=== PATIENT | female | born 1970 | race Caucasian/White ===

== ENCOUNTER 2022-12-20 21:28 | Emergency (ER) | payer OTHER, SELFPAY ==
[2022-12-20 21:35] VITALS: BP 138/104; PULSE 112; RESP 18; TEMP 36.1; O2SAT 97
--- NOTE | 2022-12-20 21:49 | ED_ITS ---
HPI - General Adult General Date Seen: 12/20/22 Chief complaint: Ear/Nose/Throat Problem Stated complaint: feels like something is stuck in throat Time Seen by Provider: 12/20/22 21:38 Source: patient Mode of arrival: ambulatory Limitations: no limitations History of Present Illness HPI narrative: Patient is a 52-year-old who presents with inability to swallow liquids after eating some chicken earlier. She was seen here couple of months ago with esophageal food impaction recommended to have endoscopy. She says she did not follow up because she felt fine. No vomiting today, just unable to swallow liquids and feels that food has become lodged. Last time she responded to EZ gas I would like to try that today. Her daughter is currently in labor at [facility] and she does not want to miss the of her 1st grandchild. Related Data Home Medications Medication Instructions Recorded Confirmed No Known Home Medications 10/18/22 10/18/22 Allergies Allergy/AdvReac Type Severity Reaction Status Date / Time ethinyl estradiol Allergy Mild Verified 10/18/22 17:19 [From Seasonale (91)] levonorgestrel Allergy Mild Verified 10/18/22 17:19 [From Seasonale (91)] Review of Systems Status of ROS: Reports: 6 or more systems reviewed and unremarkable except as noted in History and below [facility] Social History Smoking Status: Never smoker How often do you have a drink containing alcohol: never AUDIT-C Alcohol total score: 0 Non-prescribed substance use: denies use Exam Narrative: Exam Narrative: Vital signs as noted above. In general, an alert, well-appearing patient. Breathing easily. Head: Normocephalic, atraumatic. Eyes: Pupils are equal reactive. Extraocular movements are full. Conjunctivae are normal. ENT: Mucous membranes are moist. Throat is normal. Neck: Supple without lymphadenopathy. Heart: Regular rate and rhythm. No murmur or rub. Lungs: Clear bilaterally. No increased work of breathing, crackles or wheezes. Abdomen: Soft and nontender. No organomegaly. Extremities: Well perfused. No edema. No calf tenderness. Pulses intact. Neurologic: Patient is alert and oriented to person and place. Speech is fluent. Face is symmetric. Moves all extremities equally. Affect: Normal. Skin: Warm and dry. Well perfused. Const: Vital Signs, click to edit/add: Vital Signs - 24 hr 12/20/22 21:35 Temperature 97.0 F L Pulse Rate [Left P ulse Oximeter] 112 H Respiratory Rate 18 Blood Pressure [Ri ght Upper Arm] 138/104 H Pulse Oximetry 97 Oxygen Delivery Me thod Room Air Documenting provider has reviewed patient's vital signs: yes Course Course Hospital Course: Will go ahead and try pop rocks and glucagon and see if we make any headway. She had resolution of her food impaction with pop rocks, she is feeling back to normal and is able to drink without difficulty. Stressed the importance of follow-up for endoscopy at this point. Recommend Prilosec, soft foods, return as needed. Vital Signs Vital signs: Initial Vital Signs Temperature 97.0 F L 12/20/22 21:35 Temperature Source Temporal Artery Scan 12/20/22 21:35 Pulse Rate 112 H 12/20/22 21:35 Pulse Rhythm Regular 12/20/22 21:35 Respiratory Rate 18 12/20/22 21:35 Blood Pressure 138/104 H 12/20/22 21:35 Blood Pressure Mean 115 H 12/20/22 21:35 Blood Pressure Position Sitting 12/20/22 21:35 Pulse Oximetry 97 12/20/22 21:35 Oxygen Delivery Method Room Air 12/20/22 21:35 Vital Signs Temperature 97.0 F L 12/20/22 21:35 Pulse Rate 112 H 12/20/22 21:35 Respiratory Rate 18 12/20/22 21:35 Blood Pressure 138/104 H 12/20/22 21:35 Pulse Oximetry 97 12/20/22 21:35 Oxygen Delivery Method Room Air 12/20/22 21:35 Temperature 97.0 F L 12/20/22 21:35 Pulse Rate 112 H 12/20/22 21:35 Respiratory Rate 18 12/20/22 21:35 Blood Pressure 138/104 H 12/20/22 21:35 Pulse Oximetry 97 12/20/22 21:35 Oxygen Delivery Method Room Air 12/20/22 21:35 Discharge Plan Discharge Clinical Impression: Food impaction of esophagus Patient Disposition: Home, Self-Care Condition: Improved Instructions: Food Impaction (ED) Additional Instructions: For now I would recommend sticking with softer foods, avoid bulk ear foods that may get stuck, and make sure to chew your food very well. You need to be seen in follow-up for endoscopy. Talk with antonio Kirkland to see if you can get in with GI there, you can also follow-up with our surgery clinic, . Recommend an atny-neh-jobkkcy proton pump inhibitor like Prilosec. Prescriptions: No Action No Known Home Medications Follow Up/Referrals: Provider,Not a Local [Primary Care Provider] - Stand Alone Forms: [employer] Info Instructions
[2022-12-20] MEDS: SIMETHICONE/SOD BICARB/CIT AC 1 EACH GRAN.EF.PK PO (22:04)
--- NOTE | 2022-12-20 22:06 | ED.NURSE ---
patient passed chicken. Patient able to drink water without difficulty
== END 2022-12-20 22:39 | disposition home or self-care (01) ==
PROVIDERS: Emergency Provider Emergency Medicine
DX: T18.128A Food in esophagus causing other injury, initial encounter (principal)
CPT/HCPCS: 96374; 99283; 99284

== ENCOUNTER 2023-10-20 09:04 | Emergency (ER) | payer OTHER, SELFPAY ==
[2023-10-20 09:10] VITALS: BP 141/117; RESP 18; TEMP 36.4; O2SAT 96; BMI 30.7
--- NOTE | 2023-10-20 09:38 | ED_ITS ---
HPI - General Adult General Chief complaint: Skin/Abscess/Foreign Body Stated complaint: R arm tickbite or ringworm Time Seen by Provider: 10/20/23 09:14 Source: patient Mode of arrival: ambulatory Limitations: no limitations History of Present Illness HPI narrative: 52-year-old female coming in today concerned about a rash on her arm. Patient states that she spends a lot of time outside by tall grass and she is concerned that it is a tick bite. Patient did not see a tick in the area. She denies any systemic symptoms or other rashes. Rash has been present for couple days. Related Data Home Medications ?Medication ?Instructions ?Recorded ?Confirmed No Known Home Medications 10/18/22 10/18/22 Allergies Allergy/AdvReac Type Severity Reaction Status Date / Time ethinyl estradiol Allergy Mild Verified 10/18/22 17:19 [From Seasonale (91)] levonorgestrel Allergy Mild Verified 10/18/22 17:19 [From Seasonale (91)] Penicillins Allergy Verified 10/20/23 09:10 Review of Systems Status of ROS: Reports: 6 or more systems reviewed and unremarkable except as noted in History and below [facility] Medical History Esophageal obstruction ?K22.2 - Esophageal obstruction (ICD-10) Social History Smoking Status: Never smoker How often do you have a drink containing alcohol: never How often do you have six or more drinks on one occasion: Never AUDIT-C Alcohol total score: 0 Non-prescribed substance use: denies use service: No Exam Narrative: Exam Narrative: Well-nourished well-developed patient in no acute distress. Alert and oriented. Answers questions appropriately. Mood and affect are appropriate. Thoughts are goal oriented and rational. No tangential or magical thinking noted. Patient speaks in full sentences without needing to catch her breath. HEENT: Normocephalic atraumatic. Pupils are equally round reactive to light. Extraocular muscles are intact. Conjunctivae are moist without any icterus noted. Moist mucous membranes. Skin: On the right upper medial arm patient has a small rash about 1 cm in diameter. In the center of the rash it appears to be tiny blisters with clear fluid. There is no surrounding erythema, no target lesion noted, no evidence of cellulitis. Const: Vital Signs, click to edit/add: Vital Signs - 24 hr 10/20/23 09:10 Temperature 97.5 F L Respiratory Rate 18 Blood Pressure [Le ft Upper Arm] 141/117 H Pulse Oximetry 96 Oxygen Delivery Me thod Room Air Course Vital Signs Vital signs: Initial Vital Signs Temperature 97.5 F L 10/20/23 09:10 Temperature Source Temporal Artery Scan 10/20/23 09:10 Pulse Rhythm Regular 10/20/23 09:10 Respiratory Rate 18 10/20/23 09:10 Blood Pressure 141/117 H 10/20/23 09:10 Blood Pressure Mean 125 H 10/20/23 09:10 Blood Pressure Position Sitting 10/20/23 09:10 Pulse Oximetry 96 10/20/23 09:10 Oxygen Delivery Method Room Air 10/20/23 09:10 Vital Signs Temperature 97.5 F L 10/20/23 09:10 Respiratory Rate 18 10/20/23 09:10 Blood Pressure 141/117 H 10/20/23 09:10 Pulse Oximetry 96 10/20/23 09:10 Oxygen Delivery Method Room Air 10/20/23 09:10 Temperature 97.5 F L 10/20/23 09:10 Respiratory Rate 18 10/20/23 09:10 Blood Pressure 141/117 H 10/20/23 09:10 Pulse Oximetry 96 10/20/23 09:10 Oxygen Delivery Method Room Air 10/20/23 09:10 Medical Decision Making MDM Narrative Medical decision making narrative: 52-year-old female with a rash on the upper arm consistent with either a bug bite or another skin irritant. Does not appear to be consistent with a tick bite in the story does not confirm the presence of a tick. At this point I recommend no treatment aside from watchful waiting- do believe this will heal without complication. We discussed signs symptoms of infection reasons for follow-up. Discharge Plan Discharge Clinical Impression: Rash Patient Disposition: Home, Self-Care Condition: Stable Additional Instructions: The rash in your arm does not appear to be a tick bite. Likely, the skin irri tation either due to another bug bite or another irritant. Do not be concerned about it unless it becomes more red and the redness starts to spread up and down the arm. If this occurs follow-up with your doctor right away or return to the ER. Prescriptions: No Action No Known Home Medications Follow Up/Referrals: Provider,Not a Local [Primary Care Provider] - Stand Alone Forms: [employer] Info Instructions
== END 2023-10-20 09:50 | disposition home or self-care (01) ==
PROVIDERS: Emergency Provider Family Medicine
DX: R21 Rash and other nonspecific skin eruption (principal)
CPT/HCPCS: 99282; 99283

== ENCOUNTER 2024-12-25 09:15 | Emergency (ER) | payer OTHER, SELFPAY ==
--- OUTSIDE RECORDS SUMMARY | 2024-12-25 09:17 | XMS_ITS | Clinical Summary ---
Author Organization [facility] Address [facility] [place] [address] Care Team Providers Care Table Filler Name Role Phone Baron, Michaela Payne Primary Care Provider Allergies Active Allergy Reactions Criticality Noted Date Comments Penicillins 11/30/2013 Medications ketorolac (ACULAR) 0.5 % ophthalmic solution Place 1 drop Into the left eye 4 times daily To affected eye 5 mL 0 4 Active Additional Information Patient not taking.Reported on 01/07/2021 ofloxacin (OCUFLOX) 0.3 % ophthalmic solution Apply 1 drop to eye every 4 hours 1 Bottle 0 4 Active Additional Information Patient not taking.Reported on 01/07/2021 PREVIDENT 5000 BOOSTER PLUS 1.1 % PSTE USE THIS TOOTHPASTE IN PLACE OF YOUR REGULAR TOOTHPASTE BEFORE BEDTIME. BRUSH NORMALLY, THEN SWISH WITH THE REMAINING FOAM FOR AT LEAST 30 SECONDS. 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 Gender Identity Not on file Sexual Orientation Not on file Last Filed Vital Signs Vital Sign Reading Time Taken Comments Blood Pressure 128/90 09/03/2021 12:50 PM CDT Pulse 119 09/03/2021 12:50 PM CDT Temperature 37 C (98.6 F) 09/03/2021 12:50 PM CDT Respiratory Rate 16 09/03/2021 12:50 PM CDT Oxygen Saturation 95% 09/03/2021 12:50 PM CDT Inhaled Oxygen Concentration - - Weight 90.7 kg (200 lb) 11/30/2013 2:13 AM CDT Height 180.3 cm (5' 11) 11/30/2013 2:13 AM CDT Body Mass Index 27.89 11/30/2013 2:13 AM CDT Plan of Treatment Not on file Care Teams Table Filler Relationship Specialty Start Date End Date Clinic, Michaela Payne [address] [place], [place] [address] [id number] PCP - General 11/30/13
--- OUTSIDE RECORDS SUMMARY | 2024-12-25 09:17 | XMS_ITS | Clinical Summary ---
[facility] Address [address] [place] [address] Care Team Providers Care Fur Pointer Name Role Phone Unassigned, Provider Primary Care Provider Unava ilable Source Comments You are receiving this document as you are listed as the primary care provider,follow-up provider, or the patient has been referred to you for consultation.This is in compliance with the Medicare and[facility] EHR Incentive Program,which states Providers who transition their patient to another setting of careor provider of care or refers their patient to another provider of care shouldprovide summary care record for each transition of care or referral. [employer] Allergies Active Allergy Reactions Criticality Noted Date Comments Amoxicillin Hives High 07/17/2011 Penicillins Hives High 01/08/2018 Medications ibuprofen (MOTRIN) 600 MG tablet Take 600 mg by mouth every 6 hours as needed for Pain. Active Active Problems No known active problems Family History Medical History Relation Name Comments Diabetes Daughter Rheumatologic Disease Son Relation Name Status Comments Daughter Son Social History Tobacco Use Types Packs/Day Years Used Date Smoking Tobacco: Never Smokeless Tobacco: Never Comments Unknown Sex and Gender Information Value Date Recorded Sex Assigned at Not on file Legal Sex Female 4:47 AM CDT Gender Identity Not on file Sexual Orientation Not on file Last Filed Vital Signs Vital Sign Reading Time Taken Comments Blood Pressure 119/90 01/05/2018 3:06 AM CDT Pulse 107 01/05/2018 3:06 AM CDT Temperature 36.2 C (97.2 F) 03/25/2021 9:03 AM CDT Respiratory Rate 16 01/05/2018 3:06 AM CDT Oxygen Saturation 97% 01/05/2018 3:06 AM CDT Inhaled Oxygen Concentration - - Weight - - Height 180.3 cm (5' 11) 09/06/2020 1:23 PM CDT Body Mass Index - - Plan of Treatment Health Maintenance Due Date Last Done Comments Cervical Cancer Screening Due 1970 Colon Cancer Screening Plan Due 1970 Hep C Screening (Preventive Services) 1970 Mammogram 1970 HIV Screening (Preventive Services) 1986 Adult Preventive Visit 1988 HepB Vaccine (1) 1989 Cholesterol 12/13/2015 DTaP/Tdap/Td Vaccine (2 - Tdap) 07/12/2018 07/12/2008, 06/01/1998 Pneumococcal Vaccine 50+ Yrs (1 of 1 - PCV) 2020 Zoster/Shingles Vaccine (1 o f 2) 2020 COVID-19 Vaccine (1 - 2023-2 5 season) 2024 Influenza Vaccine (#1) 2025 04/11/2018 HepA Vaccine Aged Out 06/01/1998 No longer eligi ble based on patient's age to complete this topic Hib Vaccine Aged Out No longer eligi ble based on patient's age to complete this topic IPV (Polio) Vaccine Aged Out No longe r eligible based on patient's age to complete this topic MCV4 Vaccine Aged Out No longer eligi ble based on patient's age to complete this topic Meningococcal B Vaccine Aged Out No l onger eligible based on patient's age to complete this topic Care Teams Fur Pointer Relationship Specialty Start Date End Date Unassigned, Provider [address] [place] [id number] PCP - General 02/28/00
--- OUTSIDE RECORDS SUMMARY | 2024-12-25 09:17 | XMS_ITS | Clinical Summary ---
Author Organization [facility] Address [address] [place] [id number] Care Team Providers Care Front Line Leader Name Role Phone Shaylee Lemon MD Primary Care Provide r Unavailable Allergies Active Allergy Reactions Criticality Noted Date Comments Amoxicillin Hives 07/17/2011 Penicillins Hives 07/17/2011 Medications No known medications Active Problems No known active problems Immunizations Immunization Administration Dates Next Due Tdap 07/12/2008 Social History Tobacco Use Types Packs/Day Years Used Date Smoking Tobacco: Never Smokeless Tobacco: Never Alcohol Use Standard Drinks/Week Comments Yes 0 (1 standard drink = 0.6 oz pur e alcohol) Comments No Sex and Gender Information Value Date Recorded Sex Assigned at Not on file 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 Gender Identity Not on file Sexual Orientation Not on file Obstetrics History Last Filed Vital Signs Vital Sign Reading Time Taken Comments Blood Pressure 123/86 11/29/2013 10:26 AM CDT Pulse 106 11/29/2013 10:26 AM CDT Temperature 37.2 C (98.9 F) 11/29/2013 10:26 AM CDT Respiratory Rate 16 11/29/2013 10:2 6 AM CDT Oxygen Saturation 97% 11/29/2013 10: 26 AM CDT RA Inhaled Oxygen Concentration - - Weight 111.8 kg (246 lb 6.4 oz) 014 10:26 AM CDT Height 181 cm (5' 11.26) 11/29/2013 10 :26 AM CDT Body Mass Index 34.12 11/29/2013 10:26 AM CDT Plan of Treatment Health Maintenance Due Date Last Done Comments Depression screening for age 12+ 1982 HIV for age 15-65 1985 BMI (ht and wt on same day) for age 18+ 1988 Hepatitis C screening for age 18-79 1988 Hepatitis B series for 19+ ( 1 of 3 - 19+ 3-dose series) 1989 Pap test for age 21-65 12/13/1991 Colonoscopy through age 75 12/13/2015 Lipids for age 45-75 12/13/2015 Mammogram for age 45-75 12/13/2015 Tetanus booster 07/12/2018 07/12/2008 Pneumococcal series for age 50+ (1 of 1 - PCV) 021 Zoster (shingles) series for age 50+ (1 of 2) 12/13/19 21 COVID-19 vaccine series (1 - season) 4 Influenza Vaccine (#1) 2025 Care Teams Front Line Leader Relationship Specialty Start Date End Date Shaylee Lemon MD PCP - General Family Practice 07/17/11
[2024-12-25 09:27] VITALS: BP 148/108; PULSE 96; RESP 16; TEMP 36.9; O2SAT 96
--- NOTE | 2024-12-25 10:24 | ED_ITS ---
HPI - Eye Problem General Chief complaint: Eye Problems Stated complaint: right eye pain Time Seen by Provider: 12/25/24 09:43 History of Present Illness HPI Narrative: This 54-year-old female comes in reporting some intermittent eye discomfort in her right eye over the past couple weeks. She states that there is no discharge or tearing. Sometimes she reports some redness and mild swelling of her eyelids. She tries hard not to rub her eye. She does not report any obvious injury event or foreign object but comes in wondering if there may be some foreign object causing the symptoms. She states that she has been using refresh eye lubrication and this brings complete relief of her symptoms for a short time. She does wear contacts but states that she has more frequently been wearing her glasses recently. Related Data Previous Rx's ?Medication ?Instructions ?Recorded ketorolac 0.5 % eye drops (Acular) 1 drp ophthalmic (e ye) QID #5 mL 12/25/24 polymyxin B sulfate 10,000 1 drp ophthalmic (eye) Q3H 7 days 12/25/24 unit-trimethoprim 1 mg/mL eye drops #10 mL Allergies Allergy/AdvReac Type Severity Reaction Status Date / Time Penicillins Allergy Verified 12/25/24 09:25 Review of Systems Status of ROS: Reports: 10 or more systems reviewed and unremarkable except as noted in History and below Narrative: Constitutional: No fevers, no weight gain or loss. Eyes: No discharge. No vision changes. She reports light sensitivity in her right eye. Discomfort in her right eye as described above. HENT: No congestion, no sore throat, no ear pain. Cardiovascular: No chest pain, no palpitations. Respiratory: No shortness of breath, no wheezes, no cough. Gastrointestinal: No abdominal pain, no vomiting, no diarrhea. Genitourinary: No dysuria, no hematuria. Musculoskeletal: Normal range of motion. Skin: No rashes, no pruritis. Neurological: No dizziness, weakness, sensory change, speech change. Endo/Heme/Allergies: No bruising or bleeding. No polydipsia. Pysch: no suicidality, no anxiety, no insomnia. All other systems reviewed and are negative. [facility] Medical History Esophageal obstruction ?K22.2 - Esophageal obstruction (ICD-10) Social History Smoking Status: Never smoker How often do you have a drink containing alcohol: never How often do you have six or more drinks on one occasion: Never AUDIT-C Alcohol total score: 0 Non-prescribed substance use: denies use service: No Exam Narrative: Exam Narrative: Constitutional: Well-developed, well-nourished, no acute distress. HEENT: Normocephalic, atraumatic. Right eye is examined under magnification and no evidence of ulceration or foreign object is identified. Her upper eyelid was everted also and again no abnormal findings. Neck: Normal range of motion. Nontender. Supple. Heart: Intact distal pulses. Lungs: No chest discomfort. No wheezes, rhonchi, or rales. Abdomen: Nontender. Back: Normal range of motion. Extremities: Normal range of motion. No injury. Skin: Intact. No rash. Warm. No erythema or pallor. Neurologic: No altered sensation. No weakness. Alert and oriented. Psychiatric: No suicidality. No anxiety or depression. No insomnia. Nursing notes and vitals signs are reviewed. Const: Vital Signs, click to edit/add: Vital Signs - 24 hr 12/25/24 09:27 Temperature 98.4 F Pulse Rate [Pulse Oximeter] 96 Respiratory Rate 16 Blood Pressure [Ri ght Upper Arm] 148/108 H Pulse Oximetry 96 Oxygen Delivery Me thod Room Air Course Vital Signs Vital signs: Initial Vital Signs Temperature 98.4 F 12/25/24 09:27 Temperature Source Temporal Artery Scan 12/25/24 09:27 Pulse Rate 96 12/25/24 09:27 Pulse Rhythm Regular 12/25/24 09:27 Respiratory Rate 16 12/25/24 09:27 Blood Pressure 148/108 H 12/25/24 09:27 Blood Pressure Mean 121 H 12/25/24 09:27 Blood Pressure Position Sitting 12/25/24 09:27 Pulse Oximetry 96 12/25/24 09:27 Oxygen Delivery Method Room Air 12/25/24 09:27 Vital Signs Temperature 98.4 F 12/25/24 09:27 Pulse Rate 96 12/25/24 09:27 Respiratory Rate 16 12/25/24 09:27 Blood Pressure 148/108 H 12/25/24 09:27 Pulse Oximetry 96 12/25/24 09:27 Oxygen Delivery Method Room Air 12/25/24 09:27 Temperature 98.4 F 12/25/24 09:27 Pulse Rate 96 12/25/24 09:27 Respiratory Rate 16 12/25/24 09:27 Blood Pressure 148/108 H 12/25/24 09:27 Pulse Oximetry 96 12/25/24 09:27 Oxygen Delivery Method Room Air 12/25/24 09:27 MDM - Eye Problem MDM Narrative Medical decision making narrative: This patient comes in reporting right eye pain that is relieved temporarily with lubrication. Her exam is normal. I did advise her to follow-up with an eyelet punch operator for a more thorough checkup. Her visual acuity here is normal. I did provide prescription for ketorolac and Polytrim eyedrops. I also recommended she continue to use lubrication and avoid using her contacts until cleared by an internal grinder or warehouse worker. Discharge Plan Discharge Clinical Impression: Acute right eye pain Patient Disposition: Home, Self-Care Condition: Stable Additional Instructions: Use lubrication and take other meds prescribed also as needed and directed. Follow up with internal grinder or warehouse worker for further evaluation. Return if worsening. Prescriptions: New polymyxin B sulf-trimethoprim 10,000 unit- 1 mg/mL drops 1 drp ophthalmic (eye) Q3H 7 Days Qty: 10 0RF Rx Instructions: while awake; do not exceed 6 doses in 24 hours ketorolac [Acular] 0.5 % drops 1 drp ophthalmic (eye) QID Qty: 5 0RF Follow Up/Referrals: Provider,Not a Local [Primary Care Provider, Family Practice] Stand Alone Forms: [employer] Info Instructions
== END 2024-12-25 10:50 | disposition home or self-care (01) ==
LOC: ED 10:48
PROVIDERS: Emergency Provider Emergency Medicine Emergency Medical Services
DX: H57.11 Ocular pain, right eye (principal)
CPT/HCPCS: 99283; 99284